=== PATIENT | female | born 1955 | race Caucasian/White ===

== ENCOUNTER → 2017-08-22 | Outpatient (CLI) | payer OTHER | END | disposition home or self-care (01) | LOC: CT 15:17 | PROC: BW21ZZZ Computerized Tomography (CT Scan) of Abdomen and Pelvis (ICD-10-PCS; principal; 2017-08-22) | DX: R10.11 Right upper quadrant pain (principal); R10.31 Right lower quadrant pain ==

== ENCOUNTER 2017-11-04 10:15 | Day surgery (SDC) | payer OTHER ==
[2017-11-03 12:27] LABS: microscopic required? NO
[2017-11-03 12:36] LABS: BASOPHIL % 0.4 % (0-2); PLATELET COUNT 336 x10^3mcL (130-400); RED CELL DISTRIBUTION WIDTH 12.9 % (11.5-14.5)
[2017-11-03 12:51] LABS: urine erythrocyte NEGATIVE (NEGATIVE)
[2017-11-03 13:17] LABS: CALCIUM 9.3 mg/dL (8.5-10.1); CARBON DIOXIDE 27.5 mmol/L (21-32); CHLORIDE SERUM 105 mmol/L (98-107); CREATININE SERUM 0.9 mg/dL (0.6-1.0); GFR1 > 60 mL/min; GLUCOSE SERUM 97 mg/dL (74-106); POTASSIUM SERUM 3.9 mmol/L (3.5-5.1)
[2017-11-03 13:34] LABS: SODIUM SERUM 136 mmol/L (136-145)
[~2017-11-04] VITALS: Ht 170.2 cm; Wt 93.9 kg
[2017-11-04] VITALS (12 sets, daily range): BP systolic 103–118; BP diastolic 49–86
[~2017-11-04 10:15] MED LIST: BD LACTINEX1.4 MG PO; KEFLEX500 M1 PO; MOT800 PO; NOR10 PO; SINGULAIR10 MG PO; SYNTHROID0.125 MG PO; ZES20 PO
== END 2017-11-04 17:50 | disposition home or self-care (01) ==
LOC: DS 10:15 → OR 12:00 → DS 17:50
PROVIDERS: Internal Medicine Interventional Cardiology
PROC: 4A023N7 Measurement of Cardiac Sampling and Pressure, Left Heart, Percutaneous Approach (ICD-10-PCS; 2017-11-04)
PROC: B2111ZZ Fluoroscopy of Multiple Coronary Arteries using Low Osmolar Contrast (ICD-10-PCS; 2017-11-04)
PROC: B2151ZZ Fluoroscopy of Left Heart using Low Osmolar Contrast (ICD-10-PCS; 2017-11-04)
PROC: B3101ZZ Fluoroscopy of Thoracic Aorta using Low Osmolar Contrast (ICD-10-PCS; 2017-11-04)
PROC: B24BZZ4 Ultrasonography of Heart with Aorta, Transesophageal (ICD-10-PCS; principal; 2017-11-04 12:00)
DX: I35.0 Nonrheumatic aortic (valve) stenosis (principal); I35.1 Nonrheumatic aortic (valve) insufficiency
CPT/HCPCS: CLHCL; 76937; C1760; C1769; C1887; C1894; J1644; J2001; J2250; J2405; J3010; J3490; J7040; Q9967